=== PATIENT | female | born 1990 | race Two or more races ===

== ENCOUNTER 2021-03-11 19:00 | Outpatient (CLI) | payer OTHER ==
[2021-03-11] MEDS ORDERED: PRENATAL TABLE1 EAC1 (19:29)
== END 2021-03-12 15:43 | disposition home or self-care (01) ==
LOC: OBS/DEL 19:00
PROVIDERS: ATTEND Obstetrics & Gynecology
DX: O26.893 Other specified pregnancy related conditions, third trimester (principal); N89.8 Other specified noninflammatory disorders of vagina; Z3A.34 34 weeks gestation of pregnancy; Z20.822 Contact with and (suspected) exposure to COVID-19

== ENCOUNTER 2021-04-12 08:00 | Inpatient (IN) | payer OTHER ==
[~2021-04-12] VITALS: Ht 152.4 cm; Wt 3.2 kg
[~2021-04-12 08:00] MED LIST: PRENATAL TABLE1 EAC1
== END 2021-04-21 17:59 | disposition home or self-care (01) | DRG 785 ==
LOC: OB/GYN 04-19 08:00 → O/R 04-19 09:55 → OB/GYN 04-19 20:05
PROVIDERS: ADMIT Obstetrics & Gynecology; ATTEND Obstetrics & Gynecology
PROC: 0UB70ZZ Excision of Bilateral Fallopian Tubes, Open Approach (ICD-10-PCS; 2021-04-19)
PROC: 0UB90ZZ Excision of Uterus, Open Approach (ICD-10-PCS; 2021-04-19)
PROC: 4A1HXFZ Monitoring of Products of Conception, Cardiac Rhythm, External Approach (ICD-10-PCS; 2021-04-19)
PROC: 10D00Z1 Extraction of Products of Conception, Low, Open Approach (ICD-10-PCS; principal; 2021-04-19 09:45)
DX: O65.5 Obstructed labor due to abnormality of maternal pelvic organs (principal); O34.211 Maternal care for low transverse scar from previous cesarean delivery; O34.13 Maternal care for benign tumor of corpus uteri, third trimester; D25.9 Leiomyoma of uterus, unspecified; Z30.2 Encounter for sterilization; Z3A.39 39 weeks gestation of pregnancy; Z37.0 Single live birth